=== PATIENT | female | born 1975 | race Caucasian/White ===

== ENCOUNTER 2017-08-09 15:34 | Emergency (ER) | payer SELFPAY ==
[~2017-08-09] VITALS: Ht 160 cm; Wt 55.0 kg
[2017-08-09 15:46] VITALS: BP 154/84; PULSE 98; RESP 16; TEMP 98.2; O2SAT 100
[2017-08-09] MEDS ORDERED: SODIUM CHLOR 0.9% 1000 ML INJ 1,000 ML IV ONE (16:00)
[2017-08-09] MEDS ORDERED: LEVO88TA2 PO (16:07)
[2017-08-09] MEDS ORDERED: ESTR2TAB PO (16:07)
[2017-08-09] MEDS ORDERED: NEXI40CA PO (16:07)
[2017-08-09 16:08] LABS: AUTOMATED NEUTROPHIL # 6.6 TH/MM3 (1.8-7.7); BASOPHIL # 0.3 TH/MM3 (0-0.2); BASOPHIL % 2.8 % (0.0-2.0); EOSINOPHIL # 0.2 TH/MM3 (0-0.4); HEMATOCRIT 41.6 % (35.0-46.0); HEMOGLOBIN 14.1 GM/DL (11.6-15.3); LYMPH % 23.4 % (9.0-44.0); LYMPHOCYTE # 2.3 TH/MM3 (1.0-4.8); MEAN CELL VOLUME 87.5 FL (80.0-100.0); MEAN CORPUSCULAR HEMOGLOBIN 29.5 PG (27.0-34.0); MEAN CORPUSCULAR HGB CONC 33.8 % (32.0-36.0); MEAN PLATELET VOLUME 8.1 FL (7.0-11.0); MONO % 5.8 % (0.0-8.0); MONOCYTE # 0.6 TH/MM3 (0-0.9); PLATELET COUNT 356 TH/MM3 (150-450); RED BLOOD COUNT 4.76 MIL/MM3 (4.00-5.30); RED CELL DISTRIBUTION WIDTH 12.6 % (11.6-17.2)
[2017-08-09] MEDS ORDERED: ADDE30TA PO (16:09)
[2017-08-09 16:20] LABS: INTERNATIONAL NORMALIZED RATIO 1.1 RATIO; PROTHROMBIN TIME - PATIENT 10.7 SEC (9.8-11.6)
[2017-08-09 16:38] LABS: CHLORIDE 105 MEQ/L (98-107); SODIUM (NA) 137 MEQ/L (136-145)
[2017-08-09 16:42] LABS: CALCIUM 8.1 MG/DL (8.5-10.1)
[2017-08-09 16:43] LABS: ALBUMIN 3.6 GM/DL (3.4-5.0); BICARBONATE 22.7 MEQ/L (21.0-32.0); BLOOD UREA NITROGEN 17 MG/DL (7-18); GLUCOSE,RANDOM 93 MG/DL (74-106)
[2017-08-09 16:45] LABS: ALT (GPT) 20 U/L (10-53)
[2017-08-09 16:46] LABS: AST (GOT) 16 U/L (15-37); CREATININE 0.93 MG/DL (0.50-1.00); GLOMERULAR FILTRATION RATE 66 ML/MIN (>89)
[2017-08-09 16:47] LABS: TOTAL BILIRUBIN ADULT 0.3 MG/DL (0.2-1.0); TOTAL PROTEIN 7.3 GM/DL (6.4-8.2)
[2017-08-09 16:48] LABS: ALKALINE PHOSPHATASE 63 U/L (45-117)
--- NOTE | 2017-08-09 17:42 | PD ---
HPI Chief Complaint: Syncope/Near-Syncope Time Seen by Provider: 15:51 Travel History International Travel<30 days: No Contact w/Intl Traveler<30days: No Traveled to known affect area: No History of Present Illness HPI This is a 42-year-old female presents to the ER complaining of generalized weakness for the last week. Patient has history of hypothyroidism and takes Synthroid at home and patient denies any chest pain or shortness of breath although she reports some numbness in her left arm and some occasional back pain that comes and goes. Numbness went away on its own without any intervention. Patient reports some stress at home and from work states that she uses her arm a lot. PFSH Past Medical History Diminished Hearing: No Kidney Stones: Yes Thyroid Disease: Yes Tetanus Vaccination: Unknown ?: Not Past Surgical History Gynecologic Surgery: Yes (LEFT LUMPECTOMY AND BREAST LIFT) Hysterectomy: Yes Other Surgery: Yes (TMJ) Social History Alcohol Use: Yes (SOC) Tobacco Use: No Substance Use: No Allergies-Medications (Allergen,Severity, Reaction): Coded Allergies: Penicillins (Verified Allergy, Intermediate, MOUTH BLISTERS, 08/09/17) metoclopramide (Verified Allergy, Intermediate, HIVES, 08/09/17) morphine (Verified Allergy, Intermediate, HIVES, 08/09/17) Reported Meds & Prescriptions Reported Meds & Active Scripts Active Reported Adderall (Amphetamine-Dextroamphetamine) 30 Mg Tab 30 Mg PO DAILY Avoid late evening doses. Space doses at least 4 to 6 hours if more than once/day dosing. Nexium (Esomeprazole DR) 40 Mg Capdr 40 Mg PO DAILY Levothyroxine (Levothyroxine Sodium) 88 Mcg Tab 88 Mcg PO DAILY Estradiol 2 Mg Tab 2 Mg PO DAILY Review of Systems Except as stated in HPI: all other systems reviewed are Neg Physical Exam Narrative GENERAL: Alert oriented 3 no acute distress. SKIN: Focused skin assessment warm/dry. HEAD: Atraumatic. Normocephalic. EYES: Pupils equal and round. No scleral icterus. No injection or drainage. ENT: No nasal bleeding or discharge. Mucous membranes pink and moist. NECK: Trachea midline. No JVD. CARDIOVASCULAR: Regular rate and rhythm. No murmur appreciated. RESPIRATORY: No accessory muscle use. Clear to auscultation. Breath sounds equal bilaterally. GASTROINTESTINAL: Abdomen soft, non-tender, nondistended. Hepatic and splenic margins not palpable. MUSCULOSKELETAL: No obvious deformities. No clubbing. No cyanosis. No edema. NEUROLOGICAL: Awake and alert. No obvious cranial nerve deficits. Motor grossly within normal limits. Normal speech. PSYCHIATRIC: Appropriate mood and affect; insight and judgment normal. Data Data Last Documented VS Vital Signs Date Time Temp Pulse Resp B/P (MAP) Pulse Ox O2 Delivery O2 Flow Rate FiO2 08/09/17 15:51 16 100 Room Air 08/09/17 15:46 98.2 98 154/84 (107) Orders Orders Urinalysis - C+S If Indicated (08/09/17 15:56) Lipase (08/09/17 15:56) Comprehensive Metabolic Panel (08/09/17 15:56) Complete Blood Count With Diff (08/09/17 15:56) Alcohol (Ethanol) (08/09/17 15:56) Act Partial Throm Time (Ptt) (08/09/17 15:56) Prothrombin Time / Inr (Pt) (08/09/17 15:56) Sodium Chlor 0.9% 1000 Ml Inj (Ns 1000 M (08/09/17 16:00) Labs Laboratory Tests Test 08/09/17 16:04 White Blood Count 10.0 TH/MM3 Red Blood Count 4.76 MIL/MM3 Hemoglobin 14.1 GM/DL Hematocrit 41.6 % Mean Corpuscular Volume 87.5 FL Mean Corpuscular Hemoglobin 29.5 PG Mean Corpuscular Hemoglobin Concent 33.8 % Red Cell Distribution Width 12.6 % Platelet Count 356 TH/MM3 Mean Platelet Volume 8.1 FL Neutrophils (%) (Auto) 66.0 % Lymphocytes (%) (Auto) 23.4 % Monocytes (%) (Auto) 5.8 % Eosinophils (%) (Auto) 2.0 % Basophils (%) (Auto) 2.8 % Neutrophils # (Auto) 6.6 TH/MM3 Lymphocytes # (Auto) 2.3 TH/MM3 Monocytes # (Auto) 0.6 TH/MM3 Eosinophils # (Auto) 0.2 TH/MM3 Basophils # (Auto) 0.3 TH/MM3 CBC Comment DIFF FINAL Differential Comment Prothrombin Time 10.7 SEC Prothromb Time International Ratio 1.1 RATIO Activated Partial Thromboplast Time 21.3 SEC Blood Urea Nitrogen 17 MG/DL Creatinine 0.93 MG/DL Random Glucose 93 MG/DL Total Protein 7.3 GM/DL Albumin 3.6 GM/DL Calcium Level 8.1 MG/DL Alkaline Phosphatase 63 U/L Aspartate Amino Transf (AST/SGOT) 16 U/L Alanine Aminotransferase (ALT/SGPT) 20 U/L Total Bilirubin 0.3 MG/DL Sodium Level 137 MEQ/L Potassium Level 3.4 MEQ/L Chloride Level 105 MEQ/L Carbon Dioxide Level 22.7 MEQ/L Anion Gap 9 MEQ/L Estimat Glomerular Filtration Rate 66 ML/MIN Lipase 87 U/L Ethyl Alcohol Level LESS THAN 3 MG/DL MDM Medical Decision Making Medical Screen Exam Complete: Yes Emergency Medical Condition: Yes Differential Diagnosis Stress, generalized weakness, hypothyroidism. Narrative Course This is a 42-year-old female presents to the ER complaining of generalized weakness she has history of hypothyroidism and takes Synthroid she is unsure of the dose and explained to the patient that she may need to do a TSH as an outpatient to follow-up if she needs a increasing the dose of the Synthroid. Also her symptoms could be attributed to stress since her labs are within normal limits and physical exam is unremarkable as well. Patient agrees to the plan of care and will follow up with her primary care physician for a hypothyroidism. Diagnosis Primary Impression: Generalized weakness Additional Instructions: Follow-up with primary care physician for the hypothyroidism return to the ER if symptoms change or do not improve. Disposition: 01 DISCHARGE HOME Condition: Stable Markel Andres MD Aug 09, 2017 17:42
[2017-08-09 17:47] VITALS: BP 107/65
== END 2017-08-09 17:58 | disposition home or self-care (01) ==
LOC: PHED 15:34
DX: R53.1 Weakness (principal); E03.9 Hypothyroidism, unspecified; Z79.899 Other long term (current) drug therapy
CPT/HCPCS: 80053; 80307; 83690; 85025; 85610; 85730; 96360; 99284; J7030

== ENCOUNTER 2017-08-12 17:07 | Emergency (ER) | payer SELFPAY ==
[~2017-08-12] VITALS: Ht 160 cm; Wt 54.3 kg
[~2017-08-12 17:07] MED LIST: ADDE30TA PO; ESTR2TAB PO; LEVO88TA2 PO; NEXI40CA PO
[2017-08-12 17:18] VITALS: BP 140/78; PULSE 85; RESP 16; TEMP 97.7; O2SAT 97
== END 2017-08-12 19:05 | disposition left against medical advice (07) ==
LOC: PHED 17:07
DX: Z53.21 Procedure and treatment not carried out due to patient leaving prior to being seen by health care provider (principal)
CPT/HCPCS: 99281

== ENCOUNTER 2017-11-14 08:36 | Emergency (ER) | payer SELFPAY ==
[~2017-11-14] VITALS: Ht 162.6 cm; Wt 54.5 kg
[2017-11-14 08:42] VITALS: BP 186/107; PULSE 105; RESP 20; TEMP 98.3; O2SAT 100
[2017-11-14] MEDS ORDERED: SODIUM CHLOR 0.9% 1000 ML INJ 1,000 ML IV SCH (08:56)
[2017-11-14] MEDS ORDERED: NORV2.5T PO (08:57)
[2017-11-14] MEDS ORDERED: SODIUM CHLORIDE 0.9% FLUSH 10 ML FLUSH IV FLUSH PRN (09:00)
[2017-11-14] MEDS ORDERED: KETOROLAC TROMETHAMINE 30 MG/ML (IVP) VIAL IVP ONE (09:00)
[2017-11-14] MEDS ORDERED: ONDANSETRON ODT 4 MG TAB PO ONE (09:00)
[2017-11-14 09:01] VITALS: O2SAT 100
--- NOTE | 2017-11-14 09:02 | PD ---
HPI Chief Complaint: Flank/Kidney Pain Time Seen by Provider: 08:46 Travel History International Travel<30 days: No Contact w/Intl Traveler<30days: No Traveled to known affect area: No History of Present Illness HPI The patient is a 42-year-old female who presents to the emergency department for right flank pain. The patient states she developed right flank pain last night. The pain is located of the right mid aspect the back, radiates the right lower abdomen and is associated with dark-colored urine. The patient denies any hematuria, dysuria, frequency, urgency, or vaginal discharge. The patient does have a history of nephrolithiasis as well as a history of a 2 cm renal cell carcinoma per her report. The patient recently moved from [place] to formerly [facility], [facility] and is currently searching for urologist to perform robotic surgery for the possible renal cell carcinoma. The patient does complain of mild nausea secondary to the pain. Symptoms are moderate. There are no current alleviating or exacerbating factors. She denies any fever, chills, or sweats. PFSH Past Medical History Narrative Medical ADD, hypothyroidism, renal cell carcinoma Diminished Hearing: No Kidney Stones: Yes Thyroid Disease: Yes ?: Not Past Surgical History Narrative Surgical Hysterectomy Gynecologic Surgery: Yes (LEFT LUMPECTOMY AND BREAST LIFT) Hysterectomy: Yes Other Surgery: Yes (TMJ) Social History Alcohol Use: Yes (SOC) Tobacco Use: No Substance Use: No Allergies-Medications (Allergen,Severity, Reaction): Coded Allergies: Penicillins (Verified Allergy, Intermediate, MOUTH BLISTERS, 11/14/17) metoclopramide (Verified Allergy, Intermediate, HIVES, 11/14/17) morphine (Verified Allergy, Intermediate, HIVES, 11/14/17) Reported Meds & Prescriptions Reported Meds & Active Scripts Active Reported Norvasc (Amlodipine Besylate) 2.5 Mg Tab 2.5 Mg PO DAILY Adderall (Amphetamine-Dextroamphetamine) 30 Mg Tab 30 Mg PO DAILY Avoid late evening doses. Space doses at least 4 to 6 hours if more than once/day dosing. Nexium (Esomeprazole DR) 40 Mg Capdr 40 Mg PO DAILY Levothyroxine (Levothyroxine Sodium) 88 Mcg Tab 88 Mcg PO DAILY Estradiol 2 Mg Tab 2 Mg PO DAILY Review of Systems Except as stated in HPI: all other systems reviewed are Neg General / Constitutional: No: Fever Cardiovascular: No: Chest Pain or Discomfort Respiratory: No: Shortness of Breath Gastrointestinal: Positive: Nausea, Vomiting, Abdominal Pain, No: Diarrhea Genitourinary: Positive: Flank Pain, No: Urgency, Frequency, Dysuria, Hematuria , Discharge Skin: No Rash Physical Exam Narrative GENERAL: Awake, alert, pleasant 42-year-old female who appears her stated age and is in no acute respiratory distress. SKIN: Focused skin assessment warm/dry. HEAD: Atraumatic. Normocephalic. EYES: No injection or drainage. ENT: No nasal bleeding or discharge. Mucous membranes pink and moist. NECK: Trachea midline. No JVD. CARDIOVASCULAR: Regular, tachycardic with a heart rate 105. RESPIRATORY: No accessory muscle use. Clear to auscultation. Breath sounds equal bilaterally. GASTROINTESTINAL: Abdomen soft, mild suprapubic tenderness. No guarding or rigidity. Back: Right CVA tenderness. MUSCULOSKELETAL: No obvious deformities. No clubbing. No cyanosis. No edema. NEUROLOGICAL: Awake and alert. No obvious cranial nerve deficits. Motor grossly within normal limits. Normal speech. PSYCHIATRIC: Appropriate mood and affect; insight and judgment normal. Data Data Last Documented VS Vital Signs Date Time Temp Pulse Resp B/P (MAP) Pulse Ox O2 Delivery O2 Flow Rate FiO2 11/14/17 09:01 100 Room Air 11/14/17 08:42 98.3 105 20 186/107 (133) Orders Orders Complete Blood Count With Diff (11/14/17 08:56) Comprehensive Metabolic Panel (11/14/17 08:56) Lipase (11/14/17 08:56) Urinalysis - C+S If Indicated (11/14/17 08:56) Ct Abd/Pel W/O Iv Contrast (11/14/17 08:56) Iv Access Insert/Monitor (11/14/17 08:56) Ecg Monitoring (11/14/17 08:56) Oximetry (11/14/17 08:56) Sodium Chlor 0.9% 1000 Ml Inj (Ns 1000 M (11/14/17 08:56) Sodium Chloride 0.9% Flush (Ns Flush) (11/14/17 09:00) Ketorolac Inj (Toradol Inj) (11/14/17 09:00) Ondansetron Odt (Zofran Odt) (11/14/17 09:00) Potassium Chloride (Kcl) (11/14/17 10:00) Hydromorphone Pf Inj (Dilaudid Pf Inj) (11/14/17 10:30) Labs Laboratory Tests Test 11/14/17 09:00 White Blood Count 9.3 TH/MM3 Red Blood Count 5.14 MIL/MM3 Hemoglobin 15.3 GM/DL Hematocrit 44.1 % Mean Corpuscular Volume 85.7 FL Mean Corpuscular Hemoglobin 29.7 PG Mean Corpuscular Hemoglobin Concent 34.6 % Red Cell Distribution Width 12.5 % Platelet Count 397 TH/MM3 Mean Platelet Volume 8.0 FL Neutrophils (%) (Auto) 74.3 % Lymphocytes (%) (Auto) 17.1 % Monocytes (%) (Auto) 6.8 % Eosinophils (%) (Auto) 1.3 % Basophils (%) (Auto) 0.5 % Neutrophils # (Auto) 6.9 TH/MM3 Lymphocytes # (Auto) 1.6 TH/MM3 Monocytes # (Auto) 0.6 TH/MM3 Eosinophils # (Auto) 0.1 TH/MM3 Basophils # (Auto) 0.1 TH/MM3 CBC Comment DIFF FINAL Differential Comment Urine Color YELLOW Urine Turbidity TURBID Urine pH 8.0 Urine Specific [place] 1.012 Urine Protein NEG mg/dL Urine Glucose (UA) NEG mg/dL Urine Ketones NEG mg/dL Urine Occult Blood MOD Urine Nitrite NEG Urine Bilirubin NEG Urine Urobilinogen LESS THAN 2 mg/dL Urine Leukocyte Esterase NEG Urine RBC 107 /hpf Urine WBC 2 /hpf Urine Squamous Epithelial Cells 4 /hpf Urine Amorphous Sediment MANY Urine Bacteria FEW /hpf Urine Mucus FEW /lpf Microscopic Urinalysis Comment CULT NOT INDICATED Blood Urea Nitrogen 11 MG/DL Creatinine 0.74 MG/DL Random Glucose 104 MG/DL Total Protein 7.9 GM/DL Albumin 4.2 GM/DL Calcium Level 8.4 MG/DL Alkaline Phosphatase 59 U/L Aspartate Amino Transf (AST/SGOT) 20 U/L Alanine Aminotransferase (ALT/SGPT) 27 U/L Total Bilirubin 0.4 MG/DL Sodium Level 138 MEQ/L Potassium Level 3.2 MEQ/L Chloride Level 103 MEQ/L Carbon Dioxide Level 24.5 MEQ/L Anion Gap 11 MEQ/L Estimat Glomerular Filtration Rate 86 ML/MIN Lipase 75 U/L MDM Medical Decision Making Medical Screen Exam Complete: Yes Emergency Medical Condition: Yes Medical Record Reviewed: Yes Interpretation(s) Last Impressions Abdomen/Pelvis CT 11/14/17 0800 Signed Impressions: CONCLUSION: No abnormality is identified to explain the right flank pain. No renal stones a re identified. Laboratory Tests Test 11/14/17 09:00 White Blood Count 9.3 TH/MM3 Red Blood Count 5.14 MIL/MM3 Hemoglobin 15.3 GM/DL Hematocrit 44.1 % Mean Corpuscular Volume 85.7 FL Mean Corpuscular Hemoglobin 29.7 PG Mean Corpuscular Hemoglobin Concent 34.6 % Red Cell Distribution Width 12.5 % Platelet Count 397 TH/MM3 Mean Platelet Volume 8.0 FL Neutrophils (%) (Auto) 74.3 % Lymphocytes (%) (Auto) 17.1 % Monocytes (%) (Auto) 6.8 % Eosinophils (%) (Auto) 1.3 % Basophils (%) (Auto) 0.5 % Neutrophils # (Auto) 6.9 TH/MM3 Lymphocytes # (Auto) 1.6 TH/MM3 Monocytes # (Auto) 0.6 TH/MM3 Eosinophils # (Auto) 0.1 TH/MM3 Basophils # (Auto) 0.1 TH/MM3 CBC Comment DIFF FINAL Differential Comment Urine Color YELLOW Urine Turbidity TURBID Urine pH 8.0 Urine Specific [place] 1.012 Urine Protein NEG mg/dL Urine Glucose (UA) NEG mg/dL Urine Ketones NEG mg/dL Urine Occult Blood MOD Urine Nitrite NEG Urine Bilirubin NEG Urine Urobilinogen LESS THAN 2 mg/dL Urine Leukocyte Esterase NEG Urine RBC 107 /hpf Urine WBC 2 /hpf Urine Squamous Epithelial Cells 4 /hpf Urine Amorphous Sediment MANY Urine Bacteria FEW /hpf Urine Mucus FEW /lpf Microscopic Urinalysis Comment CULT NOT INDICATED Blood Urea Nitrogen 11 MG/DL Creatinine 0.74 MG/DL Random Glucose 104 MG/DL Total Protein 7.9 GM/DL Albumin 4.2 GM/DL Calcium Level 8.4 MG/DL Alkaline Phosphatase 59 U/L Aspartate Amino Transf (AST/SGOT) 20 U/L Alanine Aminotransferase (ALT/SGPT) 27 U/L Total Bilirubin 0.4 MG/DL Sodium Level 138 MEQ/L Potassium Level 3.2 MEQ/L Chloride Level 103 MEQ/L Carbon Dioxide Level 24.5 MEQ/L Anion Gap 11 MEQ/L Estimat Glomerular Filtration Rate 86 ML/MIN Lipase 75 U/L Differential Diagnosis Differential diagnosis includes nephrolithiasis, hydronephrosis, renal cell carcinoma, pyelonephritis, UTI, sepsis. Narrative Course IV was established, labs are drawn and sent, and the patient was placed on cardiac telemetry monitoring and continuous pulse oximetry monitoring. UA was sent to lab. The patient was administered Toradol, Zofran ODT, and IV fluids. The patient's UA reveals RBCs and blood, no WBCs. However, CT of the abdomen and pelvis without contrast is negative for any visible renal stones. I am unsure why the patient has hematuria and flank pain. She may have already passed a kidney stone versus renal cell carcinoma. The patient is advised to follow-up with urology. She will be provided a copy of her CT results and lab results at discharge. Diagnosis Primary Impression: Right flank pain Additional Impression: Hematuria Qualified Codes: R31.9 - Hematuria, unspecified Patient Instructions: General Instructions Additional Instructions: Please provide the patient a copy of her CT results and lab results at discharge. Follow-up with urology. Return if symptoms worsen or progress. Ibuprofen as needed. Med/Other Pt SpecificInfo: Prescription(s) given Scripts Ibuprofen (Ibuprofen) 600 Mg Tab 600 MG PO Q6H Y for Pain/Inflammation, #20 TAB 0 Refills Prov: Ian Cruz MD 11/14/17 Disposition: 01 DISCHARGE HOME Condition: Stable Ian Cruz MD Nov 14, 2017 09:01
[2017-11-14 09:23] LABS: AUTOMATED NEUTROPHIL # 6.9 TH/MM3 (1.8-7.7); BASOPHIL # 0.1 TH/MM3 (0-0.2); BASOPHIL % 0.5 % (0.0-2.0); EOSINOPHIL # 0.1 TH/MM3 (0-0.4); EOSINOPHIL % 1.3 % (0.0-4.0); HEMATOCRIT 44.1 % (35.0-46.0); HEMOGLOBIN 15.3 GM/DL (11.6-15.3); LYMPH % 17.1 % (9.0-44.0); LYMPHOCYTE # 1.6 TH/MM3 (1.0-4.8); MEAN CELL VOLUME 85.7 FL (80.0-100.0); MEAN CORPUSCULAR HEMOGLOBIN 29.7 PG (27.0-34.0); MEAN CORPUSCULAR HGB CONC 34.6 % (32.0-36.0); MONO % 6.8 % (0.0-8.0); MONOCYTE # 0.6 TH/MM3 (0-0.9); NEUT % 74.3 % (16.0-70.0); PLATELET COUNT 397 TH/MM3 (150-450); RED BLOOD COUNT 5.14 MIL/MM3 (4.00-5.30); RED CELL DISTRIBUTION WIDTH 12.5 % (11.6-17.2); WHITE BLOOD COUNT 9.3 TH/MM3 (4.0-11.0)
[2017-11-14 09:37] LABS: AMORPHOUS SEDIMENT, URINE MANY; BACTERIA, URINE FEW /hpf; BILIRUBIN, URINE NEG (NEG); BLOOD, URINE MOD (NEG); GLUCOSE,URINE NEG (NEG); KETONE, URINE NEG (NEG); MUCUS URINE FEW /lpf (OCC); NITRITE,URINE NEG (NEG); SQUAMOUS EPITHELIAL CELL URINE 4 /hpf (0-5); URINE COLOR YELLOW (YELLW/STRAW); URINE LEUKOCYTE ESTERASE NEG (NEG)
[2017-11-14 09:41] LABS: ALBUMIN 4.2 GM/DL (3.4-5.0); ALT (GPT) 27 U/L (10-53); AST (GOT) 20 U/L (15-37); BICARBONATE 24.5 MEQ/L (21.0-32.0); CALCIUM 8.4 MG/DL (8.5-10.1); CHLORIDE 103 MEQ/L (98-107); CREATININE 0.74 MG/DL (0.50-1.00); GLOMERULAR FILTRATION RATE 86 ML/MIN (>89); GLUCOSE,RANDOM 104 MG/DL (74-106); SODIUM (NA) 138 MEQ/L (136-145)
[2017-11-14 09:43] LABS: BLOOD UREA NITROGEN 11 MG/DL (7-18); TOTAL BILIRUBIN ADULT 0.4 MG/DL (0.2-1.0); TOTAL PROTEIN 7.9 GM/DL (6.4-8.2)
[2017-11-14 09:44] LABS: ALKALINE PHOSPHATASE 59 U/L (45-117)
--- NOTE | 2017-11-14 09:59 | RADRPT ---
EXAM DATE: 11/14/2017 9:40 AM EDT AGE/SEX: 42 years / Female INDICATIONS: Right sided flank pain for one day. CLINICAL DATA: This is the patient's initial encounter. Patient reports that signs and symptoms have been present for 1 day and indicates a pain score of 7/10. MEDICAL/SURGICAL HISTORY: Renal calculi. Hysterectomy. Left side lumpectomy, TMJ sx. RADIATION DOSE: 3.82 CTDI (mGy) COMPARISON: No prior exams available for comparison. TECHNIQUE: Multiple contiguous axial images were obtained through the abdomen. Images were obtained using multiple row detector helical technique. Using dose reduction techniques, radiation dose was ke pt as low as reasonably achievable to obtain optimal diagnostic quality images. FINDINGS: Lower chest: No acute abnormality is identified. Hepatobiliary: Liver density is normal. No focal lesion is seen on this noncontrast examination. No c alcified gallstones are present. Kidneys: No hydronephrosis, stone, or mass. No ureteral stone is identified. Adrenal Glands: Within normal limits. Spleen: Within normal limits. Pancreas: Within normal limits. Vascular: The aorta is nonaneurysmal. Bowel/Mesentery: The stomach and small bowel demonstrate no abnormality. No acute colon abnormality i s seen. There is no free intraperitoneal air or fluid. The appendix is not visualized. Abdominal Wall: No hernia is visualized. Retroperitoneum: No lymphadenopathy. Bladder: No wall thickening or mass. Reproductive: Uterus is absent. No adnexal abnormality is identified. Inguinal: No lymphadenopathy or hernia. Musculoskeletal: No acute osseous abnormality is identified. CONCLUSION: No abnormality is identified to explain the right flank pain. No renal stones are identified. Electronically signed by: Aric Manriquez MD 11/14/2017 9:57 AM EDT
[2017-11-14] MEDS ORDERED: POTASSIUM CHLORIDE 20 MEQ CONTROLLED RELEASE TAB PO ONE (10:00)
[2017-11-14] MEDS ORDERED: HYDROmorphone HCL PF 0.5 MG/0.5 ML SYRINGE IV PUSH ONE (10:30)
[2017-11-14] MEDS ORDERED: IBUP-232 PO (11:12)
[2017-11-14 11:30] VITALS: BP 169/103; PULSE 79; RESP 17; O2SAT 97
== END 2017-11-14 12:29 | disposition home or self-care (01) ==
LOC: NEPC 08:36
DX: R10.9 Unspecified abdominal pain (principal); R31.9 Hematuria, unspecified; E03.9 Hypothyroidism, unspecified; Z87.442 Personal history of urinary calculi; R11.2 Nausea with vomiting, unspecified; R19.7 Diarrhea, unspecified
CPT/HCPCS: 74176; 80053; 81001; 83690; 85025; 96374; 96375; 99284; J1170; J1885; J7030